=== PATIENT | female | born 1955 | race Caucasian/White ===

== ENCOUNTER 2025-01-23 14:54 | Inpatient (IN) | payer OTHER ==
[~2025-01-23] VITALS: Ht 152.4 cm; Wt 85.3 kg
[2025-01-23 15:04] VITALS: BP 150/72
[2025-01-23 15:45] LABS: BASO # 0.1 10*3/uL (0.0-0.1); BASO % 0.7 % (0.0-1.0); EOS # 0.2 10*3/uL (0.0-0.4); EOS % 2.0 % (1.0-4.0); MEAN CELL VOLUME 93.1 fl (81.0-99.0); MEAN CORPUSCULAR HGB 28.6 pg (27.0-31.0); MEAN PLATELET VOLUME 12.5 fl (9.6-12.3); MONO # 0.9 10*3/uL (0.1-1.0); MONO % 11.7 % (3.0-9.0); NEUT # 4.9 10*3/uL (2.3-7.9); NEUT % 65.4 % (47.0-73.0); NUCLEATED RED BLOOD CELL 0.0 % (0.0-0.0); NUCLEATED RED BLOOD CELL 0.0 10*3/uL (0.0-0.0); PLATELET COUNT AUTOMATED 228 10*3/uL (130-400); RED CELL DISTRI WIDTH 13.1 % (0-14.5)
[2025-01-23 16:05] LABS: BILIRUBIN Negative (Negative); BLOOD Negative (Negative); CLARITY Clear (Clear); COLOR Yellow (Yellow); KETONE Trace (Negative); LEUKO ESTERASE 1+ (Negative); NITRITE Negative (Negative); PH 5.5 (4.5-8.0); SPECIFIC GRAVITY 1.010 (1.001-1.030); UROBILINOGEN 0.2 E.U./dl (0.0-1.0)
[2025-01-23 16:05] LABS: BUN 13 mg/dl (9-23)
[2025-01-23 16:11] LABS: URINE AMPHETAMINES Negative (1000ng/ml); URINE BARBITURATES Negative (200ng/ml); URINE BENZODIAZEPINES Negative (200ng/ml); URINE CANNABINOIDS (THC) Negative (50ng/ml); URINE COCAINE Negative (300ng/ml); URINE METHADONE Negative (300ng/ml); URINE OPIATES Negative (300ng/ml); URINE PHENCYCLIDINE Negative (25ng/ml)
[2025-01-23 16:25] LABS: BACTERIA 1+; MUCOUS 1+
[2025-01-23] MEDS ORDERED: MG-AL HYDROXIDE/SIMETICONE 30 ML UDC PO PRN (17:20)
[2025-01-23] MEDS ORDERED: ACETAMINOPHEN 325 MG TAB PO PRN (17:20)
[2025-01-23] MEDS ORDERED: Menthol/Zinc Oxide 4 GM THIN T PRN (17:25)
[2025-01-23] MEDS ORDERED: BISACODYL 10 MG SUPP R PRN (17:40)
[2025-01-23] MEDS ORDERED: ALBUTEROL 8 GM INHALER INH PRN (17:50)
[2025-01-23] MEDS ORDERED: hydrOXYzine 50 MG CAP PO PRN (18:00)
[2025-01-23 18:02] VITALS: BP 119/74
[2025-01-23] MEDS ORDERED: Water, Sterile 10 ML VIAL IM PRN (18:05)
[2025-01-23] MEDS ORDERED: hydrOXYzine hydrochloride 50 MG/ML VIAL IM PRN (18:05)
[2025-01-23] MEDS ORDERED: TYLENOL EXTRA500 M2 PO (18:18)
[2025-01-23] MEDS ORDERED: NORVASC5 MG PO (18:19)
[2025-01-23] MEDS ORDERED: BUMETANIDE1 MG PO (18:20)
[2025-01-23] MEDS ORDERED: ASPIRIN CHEWABL81 MG PO (18:20)
[2025-01-23] MEDS ORDERED: CARVEDILOL6.25 MG PO (18:21)
[2025-01-23] MEDS ORDERED: DULOXETINE HCL60 MG PO (18:22)
[2025-01-23] MEDS ORDERED: DULCOLAX10 M1 R (18:24)
[2025-01-23] MEDS ORDERED: VITAMIN D250 MCG PO (18:25)
[2025-01-23] MEDS ORDERED: FEROSUL325 MG PO (18:26)
[2025-01-23] MEDS ORDERED: KEPPRA500 MG PO (18:27)
[2025-01-23] MEDS ORDERED: LEVOTHYROXINE75 MCG PO (18:27)
[2025-01-23] MEDS ORDERED: LISINOPRIL5 MG PO (18:28)
[2025-01-23] MEDS ORDERED: MURO-128 30 ML30 ML OPH (18:29)
[2025-01-23] MEDS ORDERED: POTASSIUM CHLO20 ME3 PO (18:30)
[2025-01-23] MEDS ORDERED: AIRSUPRA 90-810.7 GM INH (18:32)
[2025-01-23] MEDS ORDERED: ROSUVASTATIN CA10 MG PO (18:33)
[2025-01-23] MEDS ORDERED: TYLENOL325 M2 PO (18:34)
[2025-01-23] MEDS ORDERED: SENOKOT8.6 MG PO (18:34)
[2025-01-23] MEDS ORDERED: VISTARIL25 MG PO ×3 (18:35→18:39)
[2025-01-23] MEDS ORDERED: Coumadin2 MG PO (18:36)
[2025-01-23] MEDS ORDERED: GEODON20 MG/1 ML IM (18:38)
[2025-01-23] MEDS ORDERED: VISTARIL25 MG IM (18:42)
[2025-01-23] MEDS ORDERED: STERILE WATER IM (18:43)
[2025-01-23 20:00] VITALS: BP 122/63
[2025-01-23] MEDS ORDERED: LEVETIRACETAM 500 MG TAB PO SCH (21:00)
[2025-01-23] MEDS ORDERED: SODIUM CHLORIDE OPH SCH (21:00)
[2025-01-23] MEDS ORDERED: CARVEDILOL 6.25 MG TAB PO SCH (21:00)
[2025-01-23] MEDS ORDERED: Mirtazapine 15 MG TAB PO SCH (21:00)
[2025-01-23] MEDS ORDERED: WARFARIN SODIUM 2 MG TAB PO SCH (21:00)
[2025-01-24 06:18] LABS: MEAN CELL VOLUME 93.7 fl (81.0-99.0); MEAN CORPUSCULAR HGB 28.5 pg (27.0-31.0); MEAN PLATELET VOLUME 13.0 fl (9.6-12.3); NUCLEATED RED BLOOD CELL 0.0 % (0.0-0.0); NUCLEATED RED BLOOD CELL 0.0 10*3/uL (0.0-0.0); PLATELET COUNT AUTOMATED 206 10*3/uL (130-400); RED CELL DISTRI WIDTH 13.1 % (0-14.5)
[2025-01-24 06:43] LABS: BUN 13 mg/dl (9-23); LDL CHOLESTEROL 51 mg/dL (9-159); SGPT/ALT 10 U/L (5-49)
[2025-01-24 07:10] LABS: VITAMIN D, 25-HYDROXY 53.0 ng/mL (30-100)
[2025-01-24 08:00] VITALS: BP 118/68
[2025-01-24] MEDS ORDERED: FERROUS SULFATE 325 MG TAB PO SCH (08:00)
[2025-01-24 08:19] LABS: MANUAL DIFF REFLEX YES
[2025-01-24 08:30] LABS: PLATELET SUFFICIENCY NORMAL (NORMAL)
[2025-01-24] MEDS ORDERED: ERGOCALCIFEROL 50,000 IU CAP (1.25 MG) PO SCH (09:00)
[2025-01-24] MEDS ORDERED: ATORVASTATIN CALCIUM 40 MG TABLET PO SCH (09:00)
[2025-01-24] MEDS ORDERED: POTASSIUM CHLORIDE 20 MEQ TAB PO SCH (09:00)
[2025-01-24] MEDS ORDERED: ASPIRIN, CHEWABLE 81 MG TAB PO SCH (09:00)
[2025-01-24] MEDS ORDERED: LISINOPRIL 5 MG TAB PO SCH (09:00)
[2025-01-24] MEDS ORDERED: BUMETANIDE 1 MG TAB PO SCH (09:00)
[2025-01-24] MEDS ORDERED: CYANOCOBALAMIN 1,000 MCG/ML VIAL IM SCH (10:00)
[2025-01-24 20:00] VITALS: BP 88/55
[2025-01-24] MEDS ORDERED: WARFARIN SODIUM 2.5 MG TAB PO SCH (21:00)
[2025-01-25 08:00] VITALS: BP 95/77
[2025-01-25] MEDS ORDERED: LIDOCAINE 1 EA PATCH T SCH (09:05)
[2025-01-25 20:00] VITALS: BP 103/82
[2025-01-25] MEDS ORDERED: WARFARIN SODIUM 3 MG TAB PO SCH (21:00)
[2025-01-26 08:00] VITALS: BP 98/50
[2025-01-26] MEDS ORDERED: FERROUS SULFATE 325 MG TAB PO SCH (10:00)
[2025-01-26 20:00] VITALS: BP 95/53
[2025-01-27 08:28] VITALS: BP 106/75
[2025-01-27] MEDS ORDERED: ATORVASTATIN CALCIUM 10 MG TAB PO SCH (10:04)
[2025-01-27 20:00] VITALS: BP 116/62
[2025-01-28 08:00] VITALS: BP 109/70
[2025-01-28] MEDS ORDERED: Rivastigmine Tartrate 4.6 MG/24 HR PATCH T SCH (13:00)
[2025-01-28 20:43] VITALS: BP 104/61
[2025-01-29 08:00] VITALS: BP 103/52
[2025-01-29 21:08] VITALS: BP 103/52
[2025-01-30 08:00] VITALS: BP 122/80
[2025-01-30] MEDS ORDERED: Rivastigmine Tartrate 9.5 MG/24 HR PATCH T SCH (09:00)
[2025-01-30] MEDS ORDERED: LIDOCAINE 1 EA PATCH T SCH (09:23)
[2025-01-30] MEDS ORDERED: LIDOCAINE 4% PATCH T SCH (09:35)
[2025-01-30 14:18] LABS: BASO # 0.1 10*3/uL (0.0-0.1); BASO % 0.6 % (0.0-1.0); EOS # 0.2 10*3/uL (0.0-0.4); EOS % 2.2 % (1.0-4.0); MEAN CELL VOLUME 91.9 fl (81.0-99.0); MEAN CORPUSCULAR HGB 28.3 pg (27.0-31.0); MEAN PLATELET VOLUME 12.8 fl (9.6-12.3); MONO # 1.1 10*3/uL (0.1-1.0); MONO % 13.6 % (3.0-9.0); NEUT # 5.0 10*3/uL (2.3-7.9); NEUT % 64.6 % (47.0-73.0); NUCLEATED RED BLOOD CELL 0.0 % (0.0-0.0); NUCLEATED RED BLOOD CELL 0.0 10*3/uL (0.0-0.0); PLATELET COUNT AUTOMATED 221 10*3/uL (130-400); RED CELL DISTRI WIDTH 12.9 % (0-14.5)
[2025-01-30 14:43] LABS: BUN 11 mg/dl (9-23); SGPT/ALT 12 U/L (5-49)
[2025-01-30 20:00] VITALS: BP 109/66
[2025-01-31 08:35] VITALS: BP 115/59
[2025-01-31] MEDS ORDERED: WARFARIN SODIUM 2.5 MG TAB PO SCH (18:00)
[2025-01-31 20:00] VITALS: BP 113/66
[2025-02-01 09:24] VITALS: BP 105/53
[2025-02-01 20:00] VITALS: BP 109/70
[2025-02-02 09:36] VITALS: BP 116/54
[2025-02-02] MEDS ORDERED: DULOXETINE HCL60 MG PO (09:54)
[2025-02-02] MEDS ORDERED: LIDOCAINE PAIN1 EACH T (09:54)
[2025-02-02] MEDS ORDERED: B121000 MCG/1 IM (09:54)
[2025-02-02] MEDS ORDERED: DULOXETINE HCL30 MG PO (09:54)
[2025-02-02] MEDS ORDERED: HYDROXYZINE PAM25 M1 PO (09:54)
[2025-02-02] MEDS ORDERED: RIVASTIGMINE1 EAC1 T (09:54)
== END 2025-02-02 15:28 | DRG 885 ==
LOC: ED 14:54 → 3N 17:16
PROVIDERS: Counselor Professional; Student in an Organized Health Care Education/Training Program; ADMIT Psychiatry & Neurology Psychiatry; ATTEND Psychiatry & Neurology Psychiatry
PROC: GZHZZZZ Group Psychotherapy (ICD-10-PCS; principal; 2025-01-24)
DX: F33.2 Major depressive disorder, recurrent severe without psychotic features (principal); I11.0 Hypertensive heart disease with heart failure; R45.851 Suicidal ideations; I38 Endocarditis, valve unspecified; I50.9 Heart failure, unspecified; F39 Unspecified mood [affective] disorder; I48.91 Unspecified atrial fibrillation; F43.21 Adjustment disorder with depressed mood; E03.9 Hypothyroidism, unspecified; F41.9 Anxiety disorder, unspecified; I25.10 Atherosclerotic heart disease of native coronary artery without angina pectoris; R82.71 Bacteriuria; D64.9 Anemia, unspecified; E55.9 Vitamin D deficiency, unspecified; E78.2 Mixed hyperlipidemia; Z95.2 Presence of prosthetic heart valve; Z79.01 Long term (current) use of anticoagulants; Z90.49 Acquired absence of other specified parts of digestive tract; Z83.3 Family history of diabetes mellitus; Z88.8 Allergy status to other drugs, medicaments and biological substances

== ENCOUNTER 2025-02-18 00:19 | Inpatient (IN) | payer OTHER ==
[~2025-02-18] VITALS: Ht 152.4 cm; Wt 81.6 kg
[~2025-02-18 00:19] MED LIST: AIRSUPRA 90-810.7 GM INH; ASPIRIN CHEWABL81 MG PO; B121000 MCG/1 IM; BUMETANIDE1 MG PO; CARVEDILOL6.25 MG PO; Coumadin2 MG PO; DULCOLAX10 M1 R; DULOXETINE HCL30 MG PO; DULOXETINE HCL60 MG PO; FEROSUL325 MG PO; GEODON20 MG/1 ML IM; HYDROXYZINE PAM25 M1 PO; KEPPRA500 MG PO; LEVOTHYROXINE75 MCG PO; LIDOCAINE PAIN1 EACH T; LISINOPRIL5 MG PO; MURO-128 30 ML30 ML OPH; NORVASC5 MG PO; POTASSIUM CHLO20 ME3 PO; RIVASTIGMINE1 EAC1 T; ROSUVASTATIN CA10 MG PO; SENOKOT8.6 MG PO; STERILE WATER IM; TYLENOL EXTRA500 M2 PO; TYLENOL325 M2 PO; VISTARIL25 MG IM; VISTARIL25 MG PO; VITAMIN D250 MCG PO
[2025-02-18] MEDS ORDERED: VENLAFAXINE75 M1 PO (01:02)
[2025-02-18] MEDS ORDERED: PRAVASTATIN SOD80 MG PO (01:03)
[2025-02-18] MEDS ORDERED: Water, Sterile 10 ML VIAL IM PRN (01:10)
[2025-02-18] MEDS ORDERED: LORazepam 1 MG TAB PO PRN (01:10)
[2025-02-18] MEDS ORDERED: ACETAMINOPHEN 325 MG TAB PO PRN (01:15)
[2025-02-18] MEDS ORDERED: MG-AL HYDROXIDE/SIMETICONE 30 ML UDC PO PRN (01:15)
[2025-02-18] MEDS ORDERED: Menthol/Zinc Oxide 4 GM THIN T PRN (01:20)
[2025-02-18 06:04] LABS: BASO # 0.1 10*3/uL (0.0-0.1); BASO % 0.6 % (0.0-1.0); EOS # 0.3 10*3/uL (0.0-0.4); EOS % 2.3 % (1.0-4.0); MEAN CELL VOLUME 88.3 fl (81.0-99.0); MEAN CORPUSCULAR HGB 27.8 pg (27.0-31.0); MEAN PLATELET VOLUME 12.7 fl (9.6-12.3); MONO # 1.2 10*3/uL (0.1-1.0); MONO % 11.2 % (3.0-9.0); NEUT # 7.5 10*3/uL (2.3-7.9); NEUT % 68.5 % (47.0-73.0); NUCLEATED RED BLOOD CELL 0.0 % (0.0-0.0); NUCLEATED RED BLOOD CELL 0.0 10*3/uL (0.0-0.0); PLATELET COUNT AUTOMATED 275 10*3/uL (130-400); RED CELL DISTRI WIDTH 13.0 % (0-14.5)
[2025-02-18 06:41] LABS: BUN 22 mg/dl (9-23); LDL CHOLESTEROL 50 mg/dL (9-159); SGPT/ALT 15 U/L (5-49)
[2025-02-18 07:10] LABS: VITAMIN D, 25-HYDROXY 65.9 ng/mL (30-100)
[2025-02-18 08:00] VITALS: BP 109/70
[2025-02-18] MEDS ORDERED: CARVEDILOL 6.25 MG TAB PO SCH (09:00)
[2025-02-18] MEDS ORDERED: BUMETANIDE 1 MG TAB PO SCH (09:00)
[2025-02-18] MEDS ORDERED: Rivastigmine Tartrate 4.6 MG/24 HR PATCH T SCH (09:00)
[2025-02-18] MEDS ORDERED: LISINOPRIL 5 MG TAB PO SCH (10:00)
[2025-02-18] MEDS ORDERED: ASPIRIN, CHEWABLE 81 MG TAB PO SCH (10:00)
[2025-02-18] MEDS ORDERED: WARFARIN SODIUM 2.5 MG TAB PO SCH (18:00)
[2025-02-18] MEDS ORDERED: WARFARIN SODIUM 5 MG TAB PO SCH (18:00)
[2025-02-18 18:15] LABS: BILIRUBIN Negative (Negative); BLOOD Trace-Intact (Negative); CLARITY Turbid (Clear); COLOR Dark Yellow (Yellow); KETONE Trace (Negative); LEUKO ESTERASE 2+ (Negative); NITRITE Negative (Negative); PH 5.0 (4.5-8.0); SPECIFIC GRAVITY 1.020 (1.001-1.030); UROBILINOGEN 1.0 E.U./dl (0.0-1.0)
[2025-02-18 18:35] LABS: BACTERIA 3+; EPITHELIAL CELLS 16-20; MUCOUS 1+; RBC 21-30 rbc/hpf (0-2); WBC 31-40 wbc/hpf (0-5)
[2025-02-18 20:00] VITALS: BP 89/53
[2025-02-18] MEDS ORDERED: SODIUM CHLORIDE 0.9% 500 ML IV ONE (20:30)
[2025-02-18] MEDS ORDERED: ATORVASTATIN CALCIUM 20 MG TAB PO SCH (22:00)
[2025-02-19 08:09] VITALS: BP 104/57
[2025-02-19] MEDS ORDERED: SODIUM CHLORIDE 0.9% 500 ML IV ONE (11:45)
[2025-02-19 20:00] VITALS: BP 114/59
[2025-02-20 08:00] VITALS: BP 96/71
[2025-02-20] MEDS ORDERED: LISINOPRIL 5 MG TAB PO SCH (10:00)
[2025-02-20] MEDS ORDERED: CEPHALEXIN 500 MG CAP PO SCH (11:50)
[2025-02-20 20:00] VITALS: BP 126/60
[2025-02-21 08:00] VITALS: BP 109/62
[2025-02-21] MEDS ORDERED: Rivastigmine Tartrate 9.5 MG/24 HR PATCH T SCH (09:00)
[2025-02-21] MEDS ORDERED: WARFARIN SODIUM 2 MG TAB PO SCH (18:00)
[2025-02-21 20:00] VITALS: BP 108/86
[2025-02-22 07:45] VITALS: BP 136/76
[2025-02-22] MEDS ORDERED: WARFARIN SODIUM 3 MG TAB PO SCH (18:00)
[2025-02-22 19:18] VITALS: BP 112/61
[2025-02-23 06:42] LABS: BASO # 0.1 10*3/uL (0.0-0.1); BASO % 0.8 % (0.0-1.0); EOS # 0.2 10*3/uL (0.0-0.4); EOS % 2.8 % (1.0-4.0); MEAN CELL VOLUME 90.2 fl (81.0-99.0); MEAN CORPUSCULAR HGB 27.5 pg (27.0-31.0); MEAN PLATELET VOLUME 12.5 fl (9.6-12.3); MONO # 1.0 10*3/uL (0.1-1.0); MONO % 13.4 % (3.0-9.0); NEUT # 4.5 10*3/uL (2.3-7.9); NEUT % 64.2 % (47.0-73.0); NUCLEATED RED BLOOD CELL 0.0 % (0.0-0.0); NUCLEATED RED BLOOD CELL 0.0 10*3/uL (0.0-0.0); PLATELET COUNT AUTOMATED 228 10*3/uL (130-400); RED CELL DISTRI WIDTH 13.2 % (0-14.5)
[2025-02-23 06:59] LABS: BUN 10 mg/dl (9-23); SGPT/ALT 13 U/L (5-49)
[2025-02-23 08:37] VITALS: BP 128/80
[2025-02-23] MEDS ORDERED: RIVASTIGMINE 13.3 MG/24 HR TDM T SCH (09:00)
[2025-02-23 20:00] VITALS: BP 112/69; BP 126/81
[2025-02-24 08:13] VITALS: BP 126/71
[2025-02-24] MEDS ORDERED: RIVASTIGMINE1 EAC2 T (08:58)
[2025-02-24] MEDS ORDERED: DULOXETINE HCL60 MG PO (08:59)
[2025-02-24] MEDS ORDERED: DULOXETINE HCL30 MG PO (08:59)
== END 2025-02-24 10:55 | disposition home or self-care (01) | DRG 885 ==
LOC: 3N 00:19
PROVIDERS: Counselor Professional; Nurse Practitioner; ADMIT Psychiatry & Neurology Psychiatry; ATTEND Psychiatry & Neurology Psychiatry
PROC: GZHZZZZ Group Psychotherapy (ICD-10-PCS; principal; 2025-02-18)
PROC: GZ56ZZZ Individual Psychotherapy, Supportive (ICD-10-PCS; 2025-02-18)
DX: F33.2 Major depressive disorder, recurrent severe without psychotic features (principal); I11.0 Hypertensive heart disease with heart failure; R45.851 Suicidal ideations; N39.0 Urinary tract infection, site not specified; I48.91 Unspecified atrial fibrillation; F41.9 Anxiety disorder, unspecified; I50.9 Heart failure, unspecified; R73.9 Hyperglycemia, unspecified; D72.829 Elevated white blood cell count, unspecified; E66.9 Obesity, unspecified; E55.9 Vitamin D deficiency, unspecified; F43.21 Adjustment disorder with depressed mood; I25.10 Atherosclerotic heart disease of native coronary artery without angina pectoris; E78.5 Hyperlipidemia, unspecified; E03.9 Hypothyroidism, unspecified; Z86.73 Personal history of transient ischemic attack (TIA), and cerebral infarction without residual deficits; Z90.49 Acquired absence of other specified parts of digestive tract; Z95.4 Presence of other heart-valve replacement; Z88.8 Allergy status to other drugs, medicaments and biological substances; Z91.018 Allergy to other foods; Z79.899 Other long term (current) drug therapy; Z79.01 Long term (current) use of anticoagulants; Z68.35 Body mass index [BMI] 35.0-35.9, adult